=== PATIENT | female | born 2000 | race Caucasian/White ===

== ENCOUNTER 2022-05-04 13:16 | Emergency (ER) | payer OTHER ==
[~2022-05-04] VITALS: Ht 157.5 cm; Wt 68.2 kg
[2022-05-04 13:23] VITALS: TEMP 97.3
[2022-05-04] MEDS ORDERED: PERCOCET 325 MG1 TA2 PO (14:57)
[2022-05-04] MEDS ORDERED: FLEXERIL 1010 MG/TAB PO (14:57)
[2022-05-04] MEDS ORDERED: MOTRIN 800800 MG/TAB PO (14:57)
[2022-05-04 15:00] VITALS: BP 108/72; PULSE 81
== END 2022-05-04 15:31 | disposition home or self-care (01) ==
LOC: COL.ER 13:16
DX: M54.16 Radiculopathy, lumbar region (principal); Z28.311 Partially vaccinated for COVID-19; W10.9XXA Fall (on) (from) unspecified stairs and steps, initial encounter; W22.8XXA Striking against or struck by other objects, initial encounter; Y92.009 Unspecified place in unspecified non-institutional (private) residence as the place of occurrence of the external cause
CPT/HCPCS: J2270

== ENCOUNTER 2022-05-31 19:49 | Emergency (ER) | payer OTHER ==
[~2022-05-31] VITALS: Ht 157.5 cm; Wt 68.2 kg
[~2022-05-31 19:49] MED LIST: FLEXERIL 1010 MG/TAB PO; MOTRIN 800800 MG/TAB PO; PERCOCET 325 MG1 TA2 PO
[2022-05-31 20:25] LABS: COLLECTION METHOD CLEAN CATCH
[2022-05-31 20:31] LABS: BASO % 0.4 % (0.0-2.0); EOS # 0.1 K/mm3 (0.0-0.7); EOS % 0.7 % (0.0-4.0); GRAN # 6.9 K/mm3 (1.4-6.5); GRAN % 68.5 % (42.2-75.2); HEMATOCRIT 42.7 % (37.0-47.0); HEMOGLOBIN 15.3 g/dl (12.5-16.0); LYMPH # 2.2 K/mm3 (1.2-3.4); LYMPH % 22.1 % (20.0-51.0); MEAN CELL VOLUME 85 fl (80.0-100.0); MEAN CORPUSCULAR HEMOGLOBIN 30 pg (27-31); MEAN CORPUSCULAR HGB CONC 36 g/dl (33.0-37.0); MEAN PLATELET VOLUME 12.7 fl (7.4-10.4); MONO # 0.8 K/mm3 (0.1-0.6); PLATELET COUNT 172 K/mm3 (130-400); RED BLOOD COUNT 5.04 M/mm3 (4.10-5.30); REDCELL DISTRIBUTION WIDTH-CV 12.5 % (11.5-14.5)
[2022-05-31 20:41] LABS: URINE APPEARANCE Hazy (CLEAR/HAZY); URINE COLOR Yellow (YELLOW)
[2022-05-31 20:42] LABS: PH 7.5 (5.0-8.5); URINE BLOOD Negative (NEGATIVE); URINE GLUCOSE Negative (NEGATIVE); URINE KETONE Negative (NEGATIVE); URINE NITRATE Negative (NEGATIVE); URINE PROTEIN(semi-quant) Negative (NEGATIVE); URINE UROBILINOGEN 0.2 E.U/dL (0.2-1.0)
[2022-05-31 20:43] LABS: AMORPHOUS CRYSTAL Present (NOT PRESENT); MUCOUS Present (NOT PRESENT); URINE BACTERIA None Seen /hpf (NONE SEEN)
[2022-05-31 20:52] LABS: ALANINE AMINOTRANSFERASE 19 U/L (0-55); ALBUMIN 3.9 gm/dL (3.5-5.0); ALKALINE PHOSPHATASE 56 U/L (40-150); ANION GAP 11 mmol/L (7-16); AST,SGOT 25 U/L (5-34); BILIRUBIN,TOTAL 1.2 mg/dL (0.2-1.2); BLOOD UREA NITROGEN 15 mg/dL (7-19); CALCIUM 9.5 mg/dL (8.4-10.2); CARBON DIOXIDE 18 mmol/L (22-29); CHLORIDE 110 mmol/L (98-107); CREATININE, serum 0.77 mg/dL (0.57-1.11); GLUCOSE 111 mg/dL (70-99); LIPASE 14 U/L (8-78); POTASSIUM 4.5 mmol/L (3.5-4.5); SODIUM 139 mmol/L (136-145)
[2022-05-31 20:59] LABS: TROPONIN-I < 0.010 ng/mL (0.00-0.033)
[2022-05-31] MEDS ORDERED: NORCO 325 MG-51 TAB PO (21:38)
[2022-05-31] MEDS ORDERED: ZOFRAN ODT4 MG PO (21:38)
[2022-05-31 21:59] VITALS: BP 113/70; PULSE 92; TEMP 98.3
== END 2022-05-31 21:59 | disposition home or self-care (01) ==
LOC: COL.ER 19:49
PROVIDERS: Emergency Medicine
DX: R10.13 Epigastric pain (principal); R07.89 Other chest pain; Z28.311 Partially vaccinated for COVID-19
CPT/HCPCS: J2405; J3010; J7030; Q9967

== ENCOUNTER 2022-09-05 15:15 | Emergency (ER) | payer OTHER ==
[~2022-09-05] VITALS: Ht 157.5 cm; Wt 76.8 kg
[~2022-09-05 15:15] MED LIST changes: +CEFTIN 250250 MG/TAB PO; +NORCO 325 MG-51 TAB PO; +ZOFRAN ODT4 MG PO
[2022-09-05 15:29] VITALS: TEMP 98.1
[2022-09-05] MEDS ORDERED: MINOCYCLIN100 MG/CAP PO (15:36)
[2022-09-05] MEDS ORDERED: CLINDAGEL 40 ML40 ML TOP (15:39)
[2022-09-05] MEDS ORDERED: PROTONIX 40MG T40 MG PO (15:40)
[2022-09-05] MEDS ORDERED: Ketorolac 30 MG/ML VIAL IV ONE (15:45)
[2022-09-05] MEDS ORDERED: NS 1,000 ML IV ONE (15:45)
[2022-09-05] MEDS ORDERED: Ondansetron 4 MG/2 ML VIAL IV ONE (15:45)
[2022-09-05 16:04] LABS: BASO % 0.4 % (0.0-2.0); EOS # 0.1 K/mm3 (0.0-0.7); EOS % 0.7 % (0.0-4.0); GRAN % 66.7 % (42.2-75.2); HEMATOCRIT 43.5 % (37.0-47.0); HEMOGLOBIN 15.4 g/dl (12.5-16.0); LYMPH # 1.8 K/mm3 (1.2-3.4); LYMPH % 23.3 % (20.0-51.0); MEAN CELL VOLUME 85 fl (80.0-100.0); MEAN CORPUSCULAR HEMOGLOBIN 30 pg (27-31); MEAN CORPUSCULAR HGB CONC 35 g/dl (33.0-37.0); MEAN PLATELET VOLUME 11.2 fl (7.4-10.4); MONO # 0.6 K/mm3 (0.1-0.6); MONO % 8.5 % (1.7-9.3); PLATELET COUNT 214 K/mm3 (130-400); RED BLOOD COUNT 5.11 M/mm3 (4.10-5.30); REDCELL DISTRIBUTION WIDTH-CV 11.9 % (11.5-14.5)
[2022-09-05 16:22] LABS: ALBUMIN 4.2 gm/dL (3.5-5.0); BILIRUBIN,TOTAL 1.8 mg/dL (0.2-1.2); CALCIUM 9.2 mg/dL (8.4-10.2); CREATININE, serum 0.75 mg/dL (0.57-1.11); POTASSIUM 4.2 mmol/L (3.5-4.5); TOTAL PROTEIN 7.1 gm/dL (6.2-8.1)
[2022-09-05] MEDS ORDERED: droPERidol 2.5 MG/ML 2 ML VIAL IV ONE (17:15)
[2022-09-05 18:09] VITALS: BP 104/70; PULSE 81
== END 2022-09-05 18:14 | disposition home or self-care (01) ==
LOC: COL.ER 15:15
PROVIDERS: Nurse Practitioner Primary Care
DX: R10.9 Unspecified abdominal pain (principal); Z90.49 Acquired absence of other specified parts of digestive tract; Z87.442 Personal history of urinary calculi; Z88.8 Allergy status to other drugs, medicaments and biological substances; Z28.311 Partially vaccinated for COVID-19
CPT/HCPCS: J1790; J1885; J2405; J7030

== ENCOUNTER → 2023-06-20 | Outpatient (CLI) | payer OTHER ==
[~2023-06-20] MED LIST changes: +CLINDAGEL 40 ML40 ML TOP; +MINOCYCLIN100 MG/CAP PO; +PROTONIX 40MG T40 MG PO
== END ==
LOC: MHCPAIN 12:17
DX: M47.897 Other spondylosis, lumbosacral region (principal); M54.50 Low back pain, unspecified; M53.3 Sacrococcygeal disorders, not elsewhere classified; M96.1 Postlaminectomy syndrome, not elsewhere classified
CPT/HCPCS: G0463

== ENCOUNTER → 2023-07-19 | Outpatient (CLI) | payer OTHER ==
[~2023-07-19] MED LIST changes: +Iohexol 300 - 10 ML VIAL ONE
== END ==
LOC: MHCPAIN 08:32
DX: M46.1 Sacroiliitis, not elsewhere classified (principal); M54.50 Low back pain, unspecified; M53.3 Sacrococcygeal disorders, not elsewhere classified
CPT/HCPCS: G0260; J0665; J1010; Q9967

== ENCOUNTER 2023-07-31 12:23 | Emergency (ER) | payer OTHER ==
[~2023-07-31] VITALS: Ht 157.5 cm; Wt 72.7 kg
[~2023-07-31 12:23] MED LIST changes: -Iohexol 300 - 10 ML VIAL ONE
[2023-07-31 12:32] VITALS: TEMP 98.3
[2023-07-31 14:30] LABS: COLLECTION METHOD CLEAN CATCH
[2023-07-31 14:35] LABS: BASO % 0.5 % (0.0-2.0); EOS # 0.1 K/mm3 (0.0-0.7); EOS % 0.7 % (0.0-4.0); GRAN # 5.2 K/mm3 (1.4-6.5); GRAN % 65.1 % (42.2-75.2); HEMATOCRIT 44.6 % (37.0-47.0); HEMOGLOBIN 15.3 g/dl (12.5-16.0); LYMPH # 2.1 K/mm3 (1.2-3.4); LYMPH % 25.7 % (20.0-51.0); MEAN CELL VOLUME 89 fl (80.0-100.0); MEAN CORPUSCULAR HEMOGLOBIN 30 pg (27-31); MEAN CORPUSCULAR HGB CONC 34 g/dl (33.0-37.0); MEAN PLATELET VOLUME 11.4 fl (7.4-10.4); MONO # 0.6 K/mm3 (0.1-0.6); MONO % 7.6 % (1.7-9.3); PLATELET COUNT 212 K/mm3 (130-400); RED BLOOD COUNT 5.03 M/mm3 (4.10-5.30); REDCELL DISTRIBUTION WIDTH-CV 11.9 % (11.5-14.5)
[2023-07-31 14:41] LABS: URINE APPEARANCE CLOUDY (CLEAR/HAZY); URINE BLOOD NEGATIVE (NEGATIVE); URINE COLOR YELLOW (YELLOW); URINE GLUCOSE NEGATIVE (NEGATIVE); URINE KETONE NEGATIVE (NEGATIVE); URINE NITRATE NEGATIVE (NEGATIVE); URINE PROTEIN(semi-quant) NEGATIVE (NEGATIVE)
[2023-07-31 14:57] LABS: ALBUMIN 4.1 g/dL (3.5-5.0); BILIRUBIN,TOTAL 1.9 mg/dL (0.2-1.2); CALCIUM 10.1 mg/dL (8.4-10.2); CREATININE, serum 0.84 mg/dL (0.57-1.11); POTASSIUM 3.9 mEq/L (3.5-4.5); TOTAL PROTEIN 7.4 g/dl (6.2-8.1)
[2023-07-31 15:48] VITALS: BP 126/67; PULSE 84
== END 2023-07-31 15:48 | disposition home or self-care (01) ==
LOC: COL.ER 12:23
PROVIDERS: Physician Assistant
DX: R32 Unspecified urinary incontinence (principal)

== ENCOUNTER → 2023-10-03 | Outpatient (CLI) | payer OTHER | LOC: MHCPAIN 08:55 | DX: M47.817 Spondylosis without myelopathy or radiculopathy, lumbosacral region (principal); M54.50 Low back pain, unspecified; M53.3 Sacrococcygeal disorders, not elsewhere classified | CPT/HCPCS: G0463 ==

== ENCOUNTER → 2023-11-13 | Outpatient (CLI) | payer OTHER | LOC: COL.CARD 08:52 | DX: Z01.818 Encounter for other preprocedural examination (principal) ==